=== PATIENT | female | born 1955 | race Two or more races ===

== ENCOUNTER 2018-12-14 17:52 | Emergency (ER) | payer BC ==
[~2018-12-14] VITALS: Ht 170.2 cm; Wt 77.1 kg
[~2018-12-14 17:52] MED LIST: ALBUPOW26; ASA; GLIPPOW9; INSLANTI SC; LEUC5TAB PO; METH2.5T3 PO; PRED-188 PO
[2018-12-14 19:41] LABS: Basophils # (auto) 0 uL; Basophils % (auto) 0.8 % (0.0-2.0); Eosinophils # (auto) 0 uL; Lymphocytes # (auto) 0.3 uL; Mean Corpuscular Hemoglobin 32.6 pg (28.0-32.0); Monocytes # (auto) 0.2 uL; Neutrophils # (auto) 1.8 uL; Platelet Count (auto) 45 10^3/uL (140-450)
[2018-12-14 19:42] LABS: Hematocrit 40.1 % (36.0-46.0); Hemoglobin 13.6 g/dL (12.2-16.2); Mean Corpuscular Volume 95.9 fL (80.0-100.0); Neutrophils % (auto) 79.2 % (37.0-80.0); Red Blood Cells 4.18 10^6/uL (4.0-5.20); White Blood Cell 2.3 10^3/uL (4.4-10.8)
[2018-12-14 19:54] LABS: INR 1.15 (0.9-1.15); Partial Thromboplastin Time 26.5 sec (23.64-32.05)
[2018-12-14 19:57] LABS: Alanine Aminotransferase 60 U/L (13-56); Albumin 2.9 g/dL (3.4-5.0); Anion Gap 7 (5-15); Aspartate Aminotransferase 40 U/L (15-37); BUN/Creatinine Ratio 19.8; Blood Urea Nitrogen 17 mg/dL (7-18); Carbon Dioxide 23 mmol/L (21-32); Chloride 106 mmol/L (98-107); GFR African American 86 mL/min; GFR Non-African American 71 mL/min; Potassium 4.3 mmol/L (3.5-5.1); Sodium 136 mmol/L (136-145)
[2018-12-14] MEDS ORDERED: SODIUM CHLORIDE 0.9% 1,000 ML IV ONE (20:00)
[2018-12-14] MEDS ORDERED: diphenhdrAMINE HCL 50 MG/1 ML VL IV ONE (20:00)
[2018-12-14] MEDS ORDERED: methylPREDNISolone SOD SUCC 125 MG/2 ML VL IV ONE (20:00)
[2018-12-14 20:02] LABS: Alkaline Phosphatase 177 U/L (45-117); Bilirubin, Total 0.8 mg/dL (0.2-1.0); Total Protein 7.7 g/dL (6.4-8.2)
[2018-12-14 20:09] LABS: Glucose 407 mg/dL (74-106)
[2018-12-14] MEDS ORDERED: InsuLIN REG 1unit/0.01ml Soln (100units/ml) IV ONE ×2 (21:15→21:30)
[2018-12-14 22:45] VITALS: BP 125/50
== END 2018-12-15 02:06 | disposition home or self-care (01) ==
LOC: EDBD 17:52 → ER 17:57
DX: J44.1 Chronic obstructive pulmonary disease with (acute) exacerbation (principal); E11.9 Type 2 diabetes mellitus without complications; Z86.73 Personal history of transient ischemic attack (TIA), and cerebral infarction without residual deficits; Z98.51 Tubal ligation status; Z90.89 Acquired absence of other organs
CPT/HCPCS: 36415; 71045; 72125; 80053; 82962; 83880; 84484; 85025; 85610; 85730; 93005; 94761; 96374; 96375; 99284; J1200; J1815; J2930